=== PATIENT | female | born 1990 | race Caucasian/White ===

== ENCOUNTER 2022-01-14 21:14 | Emergency (ER) | payer MEDICAID, SELFPAY ==
[2022-01-14 21:19] VITALS: BP 149/92; PULSE 112; RESP 16; TEMP 36.7; O2SAT 100; BMI 20.8
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
[2022-01-14 22:18] VITALS: BP 149/92; PULSE 112; RESP 16; TEMP 36.7; O2SAT 100
[2022-01-14 22:19] VITALS: BP 145/92; PULSE 105; RESP 16; TEMP 36.7
--- NOTE | 2022-01-15 00:37 | ED.NURSE ---
verbal discharge information gone over by MD Wyatt, MD Wyatt discharged patient out.
== END 2022-01-14 22:29 | disposition home or self-care (01) ==
LOC: ED 22:21
PROVIDERS: Emergency Provider Family Medicine; PCP Physician Assistant Medical
DX: S80.212A Abrasion, left knee, initial encounter (principal); S80.211A Abrasion, right knee, initial encounter; F41.9 Anxiety disorder, unspecified
CPT/HCPCS: 99282

== ENCOUNTER 2024-01-02 17:08 | Emergency (ER) | payer BC, SELFPAY ==
[2024-01-02 17:11] VITALS: BP 140/103; PULSE 115; RESP 16; TEMP 36.5; O2SAT 100; BMI 20.1
--- NOTE | 2024-01-02 17:38 | ED_ITS ---
HPI - General Adult General Chief complaint: Unspecified Complaint, Adult Stated complaint: bat exposure Time Seen by Provider: 01/02/24 17:09 History of Present Illness HPI narrative: This 33-year-old female comes in because of a bat exposure that occurred 5 days ago. She was instructed by the [facility] to come in for rabies immune globulin and rabies vaccine. The patient states that she saw a bat that was young and wanted to dispose of it because there were children around. She put on latex gloves and picked up the bat and brought it in to a rehabilitation place. She states that she did feel little pinch on her finger of 1 of her hands when she was holding a bat. She was contacted by the [facility] and heard that there were tests that were done that were inconclusive and that she should come in for rabies immunoglobulin and vaccination. Patient states that she feels fine. She does not have any sign of injury on her hand but did have a significant exposure risk and presents for these treatments. Related Data Home Medications ?Medication ?Instructions ?Recorded ?Confirmed medroxyprogesterone 150 mg/mL 150 mg IM 05/03/22 08/29/23 intramuscular syringe Previous Rx's ?Medication ?Instructions ?Recorded amlodipine 5 mg tablet 5 mg PO QHS #90 tabs 08/29/23 nystatin 100,000 unit/gram topical 1 applic topical BID #15 grams 08/29/23 cream dextroamphetamine-amphetamine 10 10 mg PO .noon #30 tabs 11/29/23 mg tablet dextroamphetamine-amphetamine 10 10 mg PO .noon #30 tabs 11/29/23 mg tablet (Adderall) dextroamphetamine-amphetamine 10 10 mg PO QDAY #30 tabs 11/29/23 mg tablet (Adderall) dextroamphetamine-amphetamine 20 20 mg PO QAM #30 tabs 11/29/23 mg tablet dextroamphetamine-amphetamine 20 20 mg PO QDAY #30 tabs 11/29/23 mg tablet (Adderall) dextroamphetamine-amphetamine 20 20 mg PO QDAY #30 tabs 11/29/23 mg tablet (Adderall) Allergies Allergy/AdvReac Type Severity Reaction Status Date / Time shellfish derived Allergy Severe Verified 01/02/24 17:20 bacitracin AdvReac Mild Verified 01/02/24 17:20 [From Neosporin ([id number])] neomycin AdvReac Mild Verified 01/02/24 17:20 [From Neosporin ([id number])] polymyxin B AdvReac Mild Verified 01/02/24 17:20 [From Neosporin ([id number])] amoxicillin AdvReac Mild Nausea Uncoded 01/10/23 14:44 tylenol 3 AdvReac Unknown Uncoded 01/10/23 14:44 Review of Systems Status of ROS: Reports: 10 or more systems reviewed and unremarkable except as noted in History and below Narrative: Constitutional: No fevers, no weight gain or loss. Eyes: No discharge. No vision changes. HENT: No congestion, no sore throat, no ear pain. Cardiovascular: No chest pain, no palpitations. Respiratory: No shortness of breath, no wheezes, no cough. Gastrointestinal: No abdominal pain, no vomiting, no diarrhea. Genitourinary: No dysuria, no hematuria. Musculoskeletal: Normal range of motion. Skin: No rashes, no pruritis. Neurological: No dizziness, weakness, sensory change, speech change. Endo/Heme/Allergies: No bruising or bleeding. No polydipsia. Pysch: no suicidality, no anxiety, no insomnia. All other systems reviewed and are negative. [facility] Medical History (Updated 01/02/24 @ 17:43 by Philip Ivory MD) Thyroid cyst ?E04.1 - Nontoxic single thyroid nodule (ICD-10) Surgical History (Updated 04/08/22 @ 13:38 by Megan Mendoza) History of removal of thyroglossal duct cyst ?Z87.798 - Personal history of other (corrected) congenital malformations (ICD-10) Family History (Updated 04/08/22 @ 13:40 by Megan Mendoza) Father Alcohol dependence Mother Bipolar 1 disorder History of suicide attempt Social History Smoking Status: Current every day smoker What tobacco products do you use: cigarettes Smoking packs per day: 0.5 Smoking cigarettes per day: 10.0 Do you use any of these nicotine containing products: None Second hand tobacco smoke exposure: No How often do you have a drink containing alcohol: 4 or more times a week How many standard drinks containing alcohol do you have on a typical day: 3 or 4 AUDIT-C Alcohol total score: 5 Non-prescribed substance use: marijuana (any form) Little interest or pleasure in doing things: not at all Feeling down, depressed, or hopeless: several days Exam Narrative: Exam Narrative: Constitutional: Well-developed, well-nourished, no acute distress. HEENT: Normocephalic, atraumatic. Neck: Normal range of motion. Nontender. Supple. Heart: Intact distal pulses. Lungs: No chest discomfort. No wheezes, rhonchi, or rales. Abdomen: Nontender. Back: Normal range of motion. Extremities: Normal range of motion. No injury. Skin: Intact. No rash. Warm. No erythema or pallor. Neurologic: No altered sensation. No weakness. Alert and oriented. Psychiatric: No suicidality. No anxiety or depression. No insomnia. Nursing notes and vitals signs are reviewed. Const: Vital Signs, click to edit/add: Vital Signs - 24 hr 01/02/24 17:11 Temperature 97.7 F Pulse Rate [Pulse Oximeter] 115 H Respiratory Rate 16 Blood Pressure [[facility] Upper Arm] 140/103 H Pulse Oximetry 100 Oxygen Delivery Me thod Room Air Course Vital Signs Vital signs: Initial Vital Signs Temperature 97.7 F 01/02/24 17:11 Temperature Source Temporal Artery Scan 01/02/24 17:11 Pulse Rate 115 H 01/02/24 17:11 Pulse Rhythm Regular 01/02/24 17:11 Pulse Strength 3+ Normal 01/02/24 17:11 Respiratory Rate 16 01/02/24 17:11 Blood Pressure 140/103 H 01/02/24 17:11 Blood Pressure Mean 115 H 01/02/24 17:11 Blood Pressure Position Sitting 01/02/24 17:11 Pulse Oximetry 100 01/02/24 17:11 Oxygen Delivery Method Room Air 01/02/24 17:11 Vital Signs Temperature 97.7 F 01/02/24 17:11 Pulse Rate 115 H 01/02/24 17:11 Respiratory Rate 16 01/02/24 17:11 Blood Pressure 140/103 H 01/02/24 17:11 Pulse Oximetry 100 01/02/24 17:11 Oxygen Delivery Method Room Air 01/02/24 17:11 Temperature 97.7 F 01/02/24 17:11 Pulse Rate 115 H 01/02/24 17:11 Respiratory Rate 16 01/02/24 17:11 Blood Pressure 140/103 H 01/02/24 17:11 Pulse Oximetry 100 01/02/24 17:11 Oxygen Delivery Method Room Air 01/02/24 17:11 Medical Decision Making MDM Narrative Medical decision making narrative: This patient has a significant bat exposure that does warrant administration of rabies immunoglobulin and vaccine. Patient received the immunoglobulin and the 1st vaccine dose today. She is instructed to return on day 3, 7, and 14 for subsequent vaccinations. This would occur on January 04, , and . I placed an order for these dates for administration of rabies vaccine. The patient will be able to present to the emergency department for a nurse's visit. Discharge Plan Discharge Clinical Impression: Need for post exposure prophylaxis for rabies Patient Disposition: Home, Self-Care Condition: Stable Additional Instructions: Return to this emergency department on January 04 of January 08, and January 15 for repeat rabies vaccinations to complete the series. Follow up with MD otherwise as needed. Prescriptions: No Action medroxyprogesterone 150 mg/mL syringe 150 mg IM amlodipine 5 mg tablet 5 mg PO QHS Qty: 90 1RF nystatin 100,000 unit/gram cream 1 applic topical BID Qty: 15 0RF dextroamphetamine-amphetamine [Adderall] 10 mg tablet 10 mg PO .noon Qty: 30 0RF dextroamphetamine-amphetamine 10 mg tablet 10 mg PO .noon Qty: 30 0RF dextroamphetamine-amphetamine [Adderall] 10 mg tablet 10 mg PO QDAY Qty: 30 0RF dextroamphetamine-amphetamine [Adderall] 20 mg tablet 20 mg PO QDAY Qty: 30 0RF dextroamphetamine-amphetamine 20 mg tablet 20 mg PO QAM Qty: 30 0RF dextroamphetamine-amphetamine [Adderall] 20 mg tablet 20 mg PO QDAY Qty: 30 0RF Follow Up/Referrals: Demond Yu PA-C [Primary Care Provider] - Stand Alone Forms: [employer] Info Instructions
--- OUTSIDE RECORDS SUMMARY | 2024-01-02 17:43 | XMS_ITS | Clinical Summary ---
Author Organization [employer] Address [id number], [place] [address] Care Team Providers Care Diagnostic Assistant Name Role Phone Needs Pcp, Assignment Primary Care Provider [phone] Source Comments You are receiving this document as you are listed as the primary care provider,follow-up provider, or the patient has been referred to you for consultation.This is in compliance with the Medicare and[facility]centive [facility],which states Providers who transition their patient to another setting of careor provider of care or refers their patient to another provider of care shouldprovide summary care record for each transition of care or referral. [employer] Allergies Active Allergy Reactions Criticality Noted Date Comments Amoxicillin Other, see comments 12/14/2022 Vaginal bleeding/spotting Codeine Nausea Medium 09/04/2013 Neomycin-Bacitracin Zn-Polymyx Rash Low 01/11/2022 Shellfish-Derived Products Anaphylaxis High 09/16/2017 Medications Medication Sig Dispensed Refills Start Date End Date Status unknown medication Indications: PN: 05/05/2008 Active unknown medication Indications: PN: 08/07/2007 Active amphetamine-dextr oamphetamine (ADDERALL) 20 MG tablet Take 1 Tablet (20 mg) by mouth daily. 03/12/2011 Active medroxyPROGESTERo ne (DEPO-PROVERA) 150 MG/ML injection Inject 150 mg intramuscularly every 3 months. 10/15/2011 Active methylPREDNISolon e (MEDROL 21 TABLET DOSEPACK) 4 MG tablet Follow package directions 21 Tablet 11/01/2020 Active Additional Information Patient not taking.Reported on 01/11/2022 methocarbamol (ROBAXIN) 500 MG tablet Take 1 Tablet by mouth at bedtime as needed for Other. 20 Tablet 11/01/2020 Active hydrOXYzine HCl (ATARAX) 25 MG tablet 1-2 tabs at hs prn 30 Tablet 11/01/2020 Active Additional Information Patient not taking.Reported on 01/11/2022 cyclobenzaprine (FLEXERIL) 10 MG tablet Take 1 Tablet (10 mg) by mouth three times a day as needed for Muscle Spasms. 30 Tablet 10/12/2022 Active HYDROcodone-aceta minophen (NORCO) 5-325 MG tablet Take 1-2 Tablets by mouth every 8 hours as needed for Pain. 6 Tablet 10/12/2022 Active amLODIPine (NORVASC) 5 MG tablet Take 1 Tablet (5 mg) by mouth daily. 11/21/2022 Active Active Problems No known active problems Immunizations Name Administration Dates Next Due Tdap 09/16/2017 Social History Tobacco Use Types Packs/Day Years Used Date Smoking Tobacco: Every Day Cigarettes Smokeless Tobacco: Never Sex and Gender Information Value Date Recorded Sex Assigned at Not on file Gender Identity Not on file Sexual Orientation Not on file Last Filed Vital Signs Vital Sign Reading Time Taken Comments Blood Pressure 143/88 12/14/2022 4:09 PM CDT Pulse 110 12/14/2022 4:09 PM CDT Temperature 36.4 ??C (97.6 ??F) 12/14/2022 4:09 PM CD T Respiratory Rate 16 12/14/2022 4:09 PM CDT Oxygen Saturation 100% 12/14/2022 4:09 PM CDT Inhaled Oxygen Concentration - - Weight 54.9 kg (121 lb) 10/12/2022 2:18 PM CDT Height 162.6 cm (5' 4) 10/12/2022 2:18 PM CDT Body Mass Index 20.77 10/12/2022 2:18 PM CDT Plan of Treatment Health Maintenance Due Date Last Done Comments Cervical Cancer Screening Due 1992 Hep C Screening (Preventive Services) 1992 IPV (Polio) (2 of 3 - 4-dose series) 03/10/1998 02/10/1998 Pneumococcal (1 - PCV) 1998 HIV Screening (Preventive Services) 2008 HPV Vaccine (3 - 3-dose series) 05/14/2009 02/17/2009, 11/11/2008 Adult Preventive Visit 2010 HepB (1) 2011 COVID-19 Vaccine ( season) 2023 02/16/2021, 01/25/2021 Influenza (Season Ended) 2024 020, 05/22/2018, 08/20/2017, Additional history exists DTaP/Tdap/Td (4 - Tdap) 09/17/2027 09/17/19 18, 07/21/2005, 02/10/1998 Zoster/Shingles (1 of 2) 2042 MCV4 Aged Out 08/26/2005, 08/26/2005 No lo nger eligible based on patient's age to complete this topic HepA Aged Out No longer eligi ble based on patient's age to complete this topic Hib Aged Out No longer eligi ble based on patient's age to complete this topic Care Teams Diagnostic Assistant Relationship Specialty Start Date End Date Needs Pcp, [place] [address] PCP - General 09/16/17
[2024-01-02] MEDS: RABIES IMMUNE GLOBULIN 150 UNIT/ML INJ 1065 UNIT INFILTRATI (17:59)
== END 2024-01-02 18:16 | disposition home or self-care (01) ==
PROVIDERS: Emergency Provider Emergency Medicine Emergency Medical Services; PCP Physician Assistant Medical
DX: Z20.3 Contact with and (suspected) exposure to rabies (principal)
CPT/HCPCS: 90377; 90675; 96372; 99283; 99284

== ENCOUNTER 2024-01-16 16:36 | Outpatient (RCR) | payer BC, SELFPAY ==
[2024-01-05 15:42] VITALS: BP 146/88; PULSE 100; RESP 1; TEMP 36.2; O2SAT 100
[2024-01-09 15:42] VITALS: BP 155/95; PULSE 105; RESP 16; TEMP 36.4; O2SAT 100
[2024-01-16 16:41] VITALS: BP 139/90; PULSE 101; RESP 16; TEMP 36.6; O2SAT 99
== END 2024-01-16 17:00 | disposition home or self-care (01) ==
PROVIDERS: PCP Physician Assistant Medical; Visit Provider Emergency Medicine Emergency Medical Services
DX: Z20.3 Contact with and (suspected) exposure to rabies (principal); Z23 Encounter for immunization
CPT/HCPCS: 80307; 90471; 90675

== ENCOUNTER 2024-04-09 13:43 | Outpatient (CLI) | payer BC, SELFPAY | END 2024-04-09 13:44 | disposition home or self-care (01) | PROVIDERS: PCP Physician Assistant Medical; Visit Provider Physician Assistant Medical | DX: I10 Essential (primary) hypertension (principal); E04.1 Nontoxic single thyroid nodule; F98.8 Other specified behavioral and emotional disorders with onset usually occurring in childhood and adolescence; F17.200 Nicotine dependence, unspecified, uncomplicated | CPT/HCPCS: 80053; 80061; 84443 ==